=== PATIENT | female | born 1940 | race Caucasian/White ===

== ENCOUNTER 2018-04-08 13:30 | Emergency (ER) | payer OTHER ==
[2018-04-08 13:35] VITALS: BP 123/76
--- NOTE | 2018-04-08 14:13 | EDPHY ---
H & P Stated Complaint: Lac RLE on rock - Personal History Current Tetanus Diphtheria and Acellular Pertussis (TDAP): Yes - Medical/Surgical History Other PMH: hole in heart - Social History Smoking Status: Former smoker Time Seen by Provider: 04/08/18 14:13 Constitutional: Initial Vital Signs Temperature (C) 97.7 F 04/08/18 13:32 Heart Rate 70 04/08/18 13:32 Respiratory Rate 18 04/08/18 13:32 Blood Pressure 123/76 H 04/08/18 13:32 O2 Sat (%) 93 04/08/18 13:32 O2 Delivery Mode Room Air Allergies/Adverse Reactions: No Known Allergies Allergy (Unverified 04/08/18 13:35) Home Medications: Medication Instructions Recorded Metoprolol Tartrate [Lopressor 50 50 mg PO 04/08/18 mg (*)] Propranolol HCl [Inderal 40mg (*)] 40 mg PO 04/08/18 Medical Decision Making Procedures: My involvement the care this patient is solely for procedure. Please see the note of the attending physician for all other aspects of care. PROCEDURE: Laceration repair, 1. Consent: Verbal Location: Right luna, medial Length of repair: 5 cm Complexity: Complex Layer involvement: Single Anesthesia: Local. 1% lidocaine with epinephrine. 10 mL Irrigation: Extensive Debridement: None Procedure description: Following good anesthesia, the wound was copiously irrigated. Wound bed was explored with a sterile glove, and there is no foreign body noted. No compromise of the anterior tibialis muscle or fascia. No foreign body Wound borders were approximated well with good hemostasis. Tolerated well without complication. Suture/Staple material: 4-0 Prolene, 7 horizontal mattresses Wound care: Routine as discussed Suture/Staple removal: 10 Days PROCEDURE: Laceration repair, 2. Consent: Verbal Location: Right luna, lateral Length of repair: 5 cm Complexity: Complex Layer involvement: Single Anesthesia: Local. 1% lidocaine with epinephrine. 7 mL Irrigation: Extensive Debridement: None Procedure description: Following good anesthesia, the wound was copiously irrigated. Wound bed was explored with a sterile glove, and there is no foreign body noted. No obvious injury to the deep tendon structures. No foreign body. Wound borders were approximated well with good hemostasis. Tolerated well without complication. Suture/Staple material: 4-0 Prolene, 8 simple interrupted sutures Wound care: Routine as discussed Suture/Staple removal: 10 Days (Wilfredo Lloyd) ED Course/Re-evaluation: CHIEF COMPLAINT: Right leg laceration HISTORY OF PRESENT ILLNESS: The patient is a 78 y/o female complaining of a right luna laceration after scraping it on a rock while gardening today. She became concerned about the size of the laceration and decided to present to the emergency department. She denies other injuries. Denies fever, chest pain, shortness of breath, abdominal pain, urinary or bowel complaints, numbness, paresthesias. REVIEW OF SYSTEMS: A 10 point review of systems was performed and is negative with the exception of the elements mentioned in the history of present illness. PHYSICAL EXAM: HR, BP, O2 Sat, RR. Temp noted General Appearance: Alert, well hydrated, appropriate, and non-toxic appearing. Head: Atraumatic without scalp tenderness or obvious injury Eyes: Pupils equal, round, reactive to light and accommodation, EOMI, no trauma , no injection. Ears: Clear bilaterally, no perforation, normal landmarks Nose: Atraumatic, no rhinorrhea, clear. Throat: There is no erythema or exudates, no lesions, normal tonsils, mucus membranes moist. Neck: Supple, nontender, no lymphadenopathy. Respiratory: No retractions, no distress, no wheezes, and no accessory muscle use. Lungs are clear to auscultation bilaterally. Cardiovascular: Regular rate and rhythm, no murmurs, rubs, or gallops. Bilateral carotid, radial, dorsalis pedis, and posterior tibial pulses intact. Good capillary refill all extremities. Gastrointestinal: Abdomen is soft, nontender, non-distended, no masses, no rebound, no guarding, no peritoneal signs. Musculoskeletal: Normal active ROM of all extremities, atraumatic. Neurological: Alert, appropriate, and interactive. Nonfocal neuro. Skin: Two 5cm laceration to anterior aspect of right lower extremity. No foreign body visualized. No rashes, good turgor, no nodules on palpation. Past medical history: "hole in heart" Past surgical history: Denies Family history: Denies Social history: Lives in [place], employed, DIAGNOSTICS/PROCEDURES/CRITICAL CARE TIME: MACK Lloyd performed a suture repair. DIFFERENTIAL DIAGNOSIS: The differential diagnosis for the patient's leg injury included but was not limited to fracture, laceration, ligamentous injury, contusion, muscular strain. MEDICAL DECISION MAKING: The patient is a 78 y/o female presenting with a right luna laceration after scraping it on a rock while gardening today. On exam she has two 5cm lacerations to her right luna. [facility] PAC will perform a suture laceration. Imaging and laboratory studies are not indicated at this time. 1530: Reassessed patient and discussed suture removal. Return precautions provided; patient is comfortable with this plan. (Tomás Martinez) Departure - Departure Disposition: Home, Routine, Self-Care Clinical Impression: Laceration of right lower leg Qualifiers: Encounter type: initial encounter Qualified Code(s): S81.811A - Laceration without foreign body, right lower leg, initial encounter Condition: Good Instructions: Care For Your Stitches (ED), Laceration (ED) Additional Instructions: 1. Sutures out in 10 days. 2. Return to the Emergency Department for fever, redness, discharge from wound, increasing pain or other worsening of condition. Referrals: [facility] [Other] - As per Instructions Report Scribed for: Tomás Martinez Report Scribed by: Pita Frost Date of Report: 04/08/18 Time of Report: 14:15
== END 2018-04-08 15:44 | disposition home or self-care (01) ==
PROC: 0HQKXZZ Repair Right Lower Leg Skin, External Approach (ICD-10-PCS; principal; 2018-04-08)
DX: S81.811A Laceration without foreign body, right lower leg, initial encounter (principal); Z87.891 Personal history of nicotine dependence; W22.8XXA Striking against or struck by other objects, initial encounter; Y92.007 Garden or yard of unspecified non-institutional (private) residence as the place of occurrence of the external cause; Y99.8 Other external cause status; Y93.H2 Activity, gardening and landscaping